=== PATIENT | female | born 1990 | race Two or more races ===

== ENCOUNTER 2018-10-11 08:40 | Day surgery (SDC) | payer OTHER | END 2018-10-11 20:30 | disposition home or self-care (01) | LOC: CIR.AMB 08:40 → ADM 11:00 → CIR.AMB 11:00 | PROVIDERS: Specialist | PROC: 0HBV0ZZ Excision of Bilateral Breast, Open Approach (ICD-10-PCS; principal; 2018-10-11 07:00) | DX: N62 Hypertrophy of breast (principal) ==

== ENCOUNTER 2025-03-01 10:05 | Emergency (ER) | payer OTHER ==
[~2025-03-01] VITALS: Ht 167.6 cm; Wt 82.6 kg
[2025-03-01] MEDS ORDERED: FAMOTIDINE/PF 20 MG in 0.9 % SODIUM CHLORIDE 8 ML IV PUSH ONE (11:30)
[2025-03-01] MEDS ORDERED: RINGERS SOLUTION,LACTATED 1,000 ML IV ONE (11:30)
[2025-03-01] MEDS ORDERED: ONDANSETRON HCL 4 MG in 0.9 % SODIUM CHLORIDE 50 ML IV ONE (11:30)
[2025-03-01 12:34] LABS: BASO % 0.1 % (0.1-1.2); EOS # 0.02 (0.04-0.54); EOS % 0.2 % (0.7-7.0); LYMPH # 0.84 (1.18-3.74); LYMPH % 7.6 % (19.3-53.1); MEAN PLATELET VOLUME 11.10 fl (9.4-12.4); MONO # 0.30 (0.24-0.82); MONO % 2.7 % (4.7-12.5); NEUT # 9.88 (1.56-6.13); NEUT % 88.9 % (34.0-71.1); RED CELL DISTRIBUTION WIDTH 13.0 % (11.6-14.4)
[2025-03-01 13:16] LABS: ALT/SGPT 15.0 U/L (12-78); AST/SGOT 12.0 U/L (15-37); BILIRUBIN TOTAL 0.55 mg/dL (0.3-1.2); BUN CREA RATIO 20.0 (7.0-25.0); CREATININE SERUM 0.45 mg/dL (0.55-1.02); GFR 161.47; GLOBULINA 3.4 G/DL (2.4-3.5); GLUCOSE FASTING 96.0 mg/dL (65-100); OSMOLALITY SERUM 280.0 MOSM/KG (275-295)
[2025-03-01 13:46] LABS: URINE APPEARANCE Clear; URINE BILIRRUBIN Negative (NEGATIVE); URINE BLOOD Negative; URINE COLOR Yellow; URINE GLUCOSE Negative (NEGATIVE); URINE LEUKOCYTE Small; URINE NITRATE Negative; URINE PROTEIN Negative (NEGATIVE); URINE UROBILINOGEN 0.2 E.U./dl
[2025-03-01 13:51] LABS: URINE BACTERIA 968.4 uL (0.0-1933); URINE EPITHELIAL CELLS 27.8 uL (0.0-38.8); URINE WBC 41.0 uL (0.0-23.2)
[2025-03-01 13:59] LABS: URINE CAST 0.14 uL (0.0-1.40); URINE KETONE 80 (NEGATIVE); URINE RBC 1.1 uL (0.0-20.8)
== END 2025-03-01 16:34 | disposition home or self-care (01) ==
LOC: ER 10:05
PROVIDERS: General Practice
DX: O26.892 Other specified pregnancy related conditions, second trimester (principal); Z3A.24 24 weeks gestation of pregnancy; R55 Syncope and collapse

== ENCOUNTER 2025-03-03 13:06 | Outpatient (CLI) | payer OTHER | END 2025-03-03 13:51 | disposition home or self-care (01) | LOC: NST 13:06 | PROVIDERS: ATTEND Obstetrics & Gynecology Gynecology | DX: Z34.82 Encounter for supervision of other normal pregnancy, second trimester (principal) ==